=== PATIENT | male | born 2000 | race Caucasian/White ===

== ENCOUNTER → 2021-07-21 | Outpatient (CLI) | payer OTHER ==
[~2021-07-21] MED LIST: IBUPROFEN600 MG PO; NORFLEX 100 MG100 MG PO
== END ==
LOC: KOH-I 11:03
DX: M79.644 Pain in right finger(s) (principal); S62.632A Displaced fracture of distal phalanx of right middle finger, initial encounter for closed fracture; S62.634A Displaced fracture of distal phalanx of right ring finger, initial encounter for closed fracture
CPT/HCPCS: 73130